=== PATIENT | female | born 1975 | race Hispanic/Latino ===

== ENCOUNTER 2019-09-24 12:59 | Day surgery (SDC) | payer OTHER ==
[~2019-09-24 12:59] MED LIST: Ferumoxytol (ERSD) 510 MG in Sodium Chloride 0.9% 150 ML IVPB SCH
[2019-09-24 15:49] VITALS: BP 108/70; TEMP 98.6
== END 2019-09-24 15:49 | disposition home or self-care (01) ==
LOC: ONC/OP 12:59
PROVIDERS: ATTEND Internal Medicine Medical Oncology
DX: D50.8 Other iron deficiency anemias (principal)
CPT/HCPCS: 96365; J3490; Q0139

== ENCOUNTER 2019-10-01 12:59 | Day surgery (SDC) | payer OTHER ==
[~2019-10-01 12:59] MED LIST changes: -Ferumoxytol (ERSD) 510 MG in Sodium Chloride 0.9% 150 ML IVPB SCH; +Ferumoxytol (NON ERSD) 510 MG in Sodium Chloride 0.9% 250 ML 150 ML IVPB SCH
[2019-10-01] MEDS ORDERED: diphenhydrAMINE 50 MG/ML VIAL IVP SCH (13:15)
[2019-10-01 14:39] LABS: #Basophils 0.1 thou/uL (0.0-0.2); #Eosinphils 0.4 thou/uL (0.0-0.7); #Lymphocytes 1.6 thou/uL (1.20-3.40); #Monocytes 0.4 thou/uL (0.11-0.59); #Neutrophils 4.8 thou/uL (1.40-6.50); %Basophils 0.7 % (0.0-1.0); %Eosinophils 4.9 % (0.0-10.0); %Lymphocytes 22.4 % (21.0-51.0); %Monocytes 6.1 % (0.0-10.0); %Neutrophils 65.9 % (42.0-75.0); Hemoglobin 10.5 g/dL (12.0-16.0); Mean Corpuscular HGB CONC 31.8 g/dL (32.0-36.0); Mean Corpuscular Volume 78.6 fL (78.0-98.0); Mean Platelet Volume 8.6 fL (7.4-10.4); Platelet Count 239 thou/uL (130-400); White Blood Cell (WBC) Count 7.3 thou/uL (4.8-10.8)
[2019-10-01 15:21] VITALS: BP 121/64; TEMP 98.2
== END 2019-10-01 15:27 | disposition home or self-care (01) ==
LOC: ONC/OP 12:59
PROVIDERS: ATTEND Internal Medicine Hematology & Oncology
DX: D50.8 Other iron deficiency anemias (principal)
CPT/HCPCS: 36415; 85025; 96365; 96375; J1200; J7050; Q0138

== ENCOUNTER 2019-10-08 13:07 | Day surgery (SDC) | payer OTHER ==
[2019-10-08] MEDS ORDERED: Sodium Chloride 0.9% 20 ML ONE (13:11)
[2019-10-08 13:28] VITALS: BP 122/74; TEMP 98.6
[2019-10-08 13:38] LABS: #Eosinphils 0.2 thou/uL (0.0-0.7); #Lymphocytes 1.5 thou/uL (1.20-3.40); #Monocytes 0.4 thou/uL (0.11-0.59); #Neutrophils 3.7 thou/uL (1.40-6.50); %Basophils 0.4 % (0.0-1.0); %Lymphocytes 25.6 % (21.0-51.0); %Neutrophils 63.1 % (42.0-75.0); Hemoglobin 11.9 g/dL (12.0-16.0); Mean Corpuscular HGB CONC 32.5 g/dL (32.0-36.0); Mean Corpuscular Hemoglobin 26.3 pg (27.0-31.0); Mean Corpuscular Volume 80.8 fL (78.0-98.0); Platelet Count 222 thou/uL (130-400); RBC Distribution Width 21.3 % (11.5-14.5); Red Blood Cell (RBC) Count 4.53 mill/uL (4.20-5.40); White Blood Cell (WBC) Count 5.8 thou/uL (4.8-10.8)
[2019-10-08 14:00] LABS: Anisocytosis SLIGHT = 6-15 cells (100X) (0-5/hpf); Elliptocytes SLIGHT = 2-5 cells (100X) (0-1/hpf); MDiff Complete? YES; Macrocytosis SLIGHT = 6-15 cells (100X) (0-5/hpf); Ovalocytes SLIGHT = 2-5 cells (100X) (0-1/hpf); Platelet Morphology Comment Appears Adequate; Polychromasia SLIGHT = 2-3 cells (100X) (0-2/hpf); Tear Drops SLIGHT = 2-5 cells (100X) (0-1/hpf)
== END 2019-10-08 14:58 | disposition home or self-care (01) ==
LOC: ONC/OP 13:07
PROVIDERS: ATTEND Internal Medicine Hematology & Oncology
DX: D50.8 Other iron deficiency anemias (principal)
CPT/HCPCS: 85025; 96365; J7050; Q0138

== ENCOUNTER 2019-10-15 12:32 | Day surgery (SDC) | payer OTHER ==
[~2019-10-15 12:32] MED LIST changes: +Ferumoxytol (ERSD) 510 MG in Sodium Chloride 0.9% 250 ML 150 ML IVPB SCH; -Ferumoxytol (NON ERSD) 510 MG in Sodium Chloride 0.9% 250 ML 150 ML IVPB SCH
[2019-10-15] MEDS ORDERED: Sodium Chloride 0.9% 20 ML ONE (12:42)
[2019-10-15 13:11] LABS: #Eosinphils 0.3 thou/uL (0.0-0.7); #Lymphocytes 1.2 thou/uL (1.20-3.40); #Monocytes 0.3 thou/uL (0.11-0.59); %Basophils 0.2 % (0.0-1.0); %Eosinophils 6.4 % (0.0-10.0); %Lymphocytes 25.1 % (21.0-51.0); %Monocytes 5.6 % (0.0-10.0); %Neutrophils 62.6 % (42.0-75.0); Hemoglobin 12.5 g/dL (12.0-16.0); Mean Corpuscular Hemoglobin 28.1 pg (27.0-31.0); Mean Corpuscular Volume 82.6 fL (78.0-98.0); Mean Platelet Volume 10.3 fL (7.4-10.4); Platelet Count 220 thou/uL (130-400); RBC Distribution Width 20.6 % (11.5-14.5); Red Blood Cell (RBC) Count 4.45 mill/uL (4.20-5.40); White Blood Cell (WBC) Count 4.8 thou/uL (4.8-10.8)
[2019-10-15 13:47] LABS: Anisocytosis SLIGHT = 6-15 cells (100X) (0-5/hpf); MDiff Complete? YES; Ovalocytes SLIGHT = 2-5 cells (100X) (0-1/hpf); Platelet Morphology Comment Appears Adequate; Polychromasia SLIGHT = 2-3 cells (100X) (0-2/hpf)
[2019-10-15 14:14] VITALS: BP 121/66; TEMP 97.8
== END 2019-10-15 14:15 | disposition home or self-care (01) ==
LOC: ONC/OP 12:32
PROVIDERS: ATTEND Internal Medicine Hematology & Oncology
DX: D50.8 Other iron deficiency anemias (principal)
CPT/HCPCS: 85025; 96365; J7050; Q0139

== ENCOUNTER 2020-08-10 08:47 | Day surgery (SDC) | payer OTHER ==
[2020-08-10] MEDS ORDERED: Ferumoxytol (NON ERSD) 510 MG in Sodium Chloride 0.9% 150 ML IVPB SCH (09:00)
[2020-08-10] MEDS ORDERED: Sodium Chloride 0.9% 20 ML ONE (09:00)
[2020-08-10 09:53] VITALS: BP 103/59; TEMP 98.2
== END 2020-08-10 09:55 ==
LOC: ONC/OP 08:47
PROVIDERS: ATTEND Internal Medicine Medical Oncology
DX: D50.8 Other iron deficiency anemias (principal)
CPT/HCPCS: 96365; J3490; Q0138

== ENCOUNTER 2020-08-17 08:58 | Day surgery (SDC) | payer OTHER ==
[~2020-08-17 08:58] MED LIST changes: -Ferumoxytol (ERSD) 510 MG in Sodium Chloride 0.9% 250 ML 150 ML IVPB SCH; +Ferumoxytol (NON ERSD) 510 MG in Sodium Chloride 0.9% 250 ML 150 ML IVPB SCH
[2020-08-17 09:11] VITALS: BP 97/55; TEMP 98.1
== END 2020-08-17 09:53 ==
LOC: ONC/OP 08:58
PROVIDERS: ATTEND Internal Medicine Medical Oncology
DX: D50.8 Other iron deficiency anemias (principal)
CPT/HCPCS: 96365; J7050; Q0138